=== PATIENT | male | born 1990 | race Caucasian/White ===

== ENCOUNTER 2019-08-01 15:02 | Inpatient (IN) | payer OTHER ==
[2019-08-01 17:02] VITALS: BMI 26.2
--- NOTE | 2019-08-01 17:50 | HP ---
CIWA Score Nausea/Vomitin-Mild Nausea/No Vomiting Muscle Tremors: None Anxiety: 1-Mildly Anxious Agitation: 1-Slight > Activity Paroxysmal Sweats: No Perspiration Orientation: 0-Oriented Tacttile Disturbances: 0-None Auditory Disturbances: 0-None Visual Disturbances: 0-None Headache: 0-None Present CIWA-Ar Total Score: 3 - Admission Criteria OASAS Guidelines: Admission for Medically Managed Detox: Requires at least one of the followin. CIWA greater than 12 2. Seizures within the past 24 hours 3. Delirium tremens within the past 24 hours 4. Hallucinations within the past 24 hours 5. Acute intervention needed for co occurring medical disorder 6. Acute intervention needed for co occurring psychiatric disorder 7. Severe withdrawal that cannot be handled at a lower level of care (continued vomiting, continued diarrhea, abnormal vital signs) requiring intravenous medication and/or fluids 8. Admission ROS S - HPI Allergies/Adverse Reactions: Allergies Allergy/AdvReac Type Severity Reaction Status Date / Time No Known Allergies Allergy Verified 08/01/19 16:55 History of Present Illness: pt here requesting rehab from cannabis use , reports " all day every day since age 15 ' , poor appetite w/ not using cocaine : 1-3.5 gr/day 150 $ /day 4-5 d/week , denies IV use , first age of use 18 . alcohol : 6-pk 12 beers /day , latest use yesterday , current c/o nausea and poor appetite pmhx : asthma , latest asthma exacerbation @ age 16 , anxiety , depression pshx : denies tobacco ; 1/2 ppd shx : homeless , unemployed , denies legal issues Exam Limitations: No Limitations - Ebola screening Have you traveled outside of the country in the last 21 days: No Have you had contact with anyone from an Ebola affected area: No - Review of Systems Constitutional: Loss of Appetite EENT: reports: Other (glasses) Respiratory: reports: See HPI Cardiac: reports: No Symptoms Reported GI: reports: No Symptoms Reported : reports: No Symptoms Reported Musculoskeletal: reports: Back Pain (chronic) Integumentary: reports: No Symptoms Reported Neuro: reports: No Symptoms reported Endocrine: reports: No Symptoms Reported Psychiatric: reports: Orientated x3, Anxious Patient History - Smoking Cessation Smoking history: Current every day smoker Have you smoked in the past 12 months: Yes Hx Chewing Tobacco Use: No Initiated information on smoking cessation: Yes 'Breaking Loose' booklet given: 08/01/19 - Substances abused Alcohol Substance route: Oral Frequency: Daily Amount used: 1 liter Age of first use: 15 Date of last use: 07/31/19 Cocaine Substance route: Inhalation Frequency: 3-6 times per week Amount used: 1gram-3grams Age of first use: 18 Date of last use: 07/30/19 Marijuana/Hashish Substance route: Smoking Frequency: Daily Amount used: 10 Blunts/day Age of first use: 15 Date of last use: 07/31/19 Admission Physical Exam S - Vital Signs Vital Signs: Vital Signs - 24 hr 08/01/19 16:38 Temperature 98.1 F Pulse Rate 94 H Respiratory 16 Rate Blood Pressure 138/80 - Physical General Appearance: Yes: Anxious HEENTM: Yes: EOMI, Hearing grossly Normal, Normocephalic, Normal Voice Respiratory: Yes: Chest Non-Tender, Lungs Clear, Normal Breath Sounds, No Respiratory Distress, No Accessory Muscle Use Neck: Yes: No masses,lesions,Nodules, Trachea in good position Cardiology: Yes: Regular Rhythm, Regular Rate, S1, S2 Abdominal: Yes: Non Tender, Soft Musculoskeletal: Yes: Gait Steady Extremities: Yes: Normal Range of Motion, Non-Tender Neurological: Yes: Fully Oriented, Alert, Motor Strength 5/5 Integumentary: Yes: Warm - Diagnostic (1) Cocaine abuse Current Visit: Yes Status: Chronic (2) Cannabis dependence Current Visit: Yes Status: Chronic (3) Nicotine dependence Current Visit: Yes Status: Chronic Qualifiers: Nicotine product type: cigarettes (4) Alcohol abuse Current Visit: Yes Status: Chronic Breathalyzer - Breathalyzer Breathalyzer: 0 Urine Drug Screen - Test Device Lot number: [id number] Expiration date: 04/10/21 - Control Is test valid?: Yes - Results Drug screen NEGATIVE: No Urine drug screen results: THC-Marijuana, SHELBY-Cocaine Inpatient Rehab Admission - Rehab Decision to Admit Inpatient rehab admission?: Yes - Initial Determination Are CD services needed?: Yes Free of communicable disease: Yes Not in need of hospitalization: Yes - Rehab Admission Criteria Previous failed treatment: Yes Poor recovery environment: Yes Comorbidities: No Lacks judgement: Yes Patient is meeting Inpatient Rehab admission criteria:: Yes
[2019-08-01] MEDS ORDERED: LOPERAMIDE HCL 2 MG CAPSULE PO PRN (18:00)
[2019-08-01] MEDS ORDERED: MENTHOL/PHENOL 1 EACH UD MM PRN (18:00)
[2019-08-01] MEDS ORDERED: MAGNESIUM CITRATE 300 ML BOTTLE PO PRN (18:00)
[2019-08-01] MEDS ORDERED: NICOTINE POLACRILEX 2 MG GUM BC PRN (18:00)
[2019-08-01] MEDS ORDERED: guaiFENesin 200 MG/10 ML 10 ML UNIT-DOSE CUPS PO PRN (18:00)
[2019-08-01] MEDS ORDERED: P-EPHED 60MG/TRIPROLIDI 2.5MG TABLET PO PRN (18:00)
[2019-08-01] MEDS ORDERED: ACETAMINOPHEN 325 MG TABLET (FP) PO PRN (18:00)
[2019-08-01] MEDS ORDERED: MAGNESIUM HYDROX 2400MG/30ML ORAL SUSPENSION 30 ML CUP PO PRN (18:00)
[2019-08-01] MEDS: THIAMINE HCL 100 MG TABLET (FP) PO SCH (21:28)
[2019-08-01] MEDS: MELATONIN 5 MG TABLETS PO PRN (21:29)
[2019-08-01] MEDS: hydrOXYzine PAMOATE 50 MG CAPSULE (FP) PO PRN (21:29)
[2019-08-01] MEDS ORDERED: TUBERCULIN PPD 5 TU/0.1ML VIAL ID ONE (21:41)
--- NOTE | 2019-08-02 09:40 | CONSULT ---
[facility] Psychiatric Consult - Data Date of interview: 08/02/19 Admission source: [facility] Identifying data: Patient is a 29 year old single male, without children, unemployed, homeless, and is not receiving financial assistance. This is patient's first admission to rehab at [facility]. Patient admitted to for alcohol, cocaine, and marijuana dependence. Substance Abuse History: Smoking Cessation. Smoking history: Current every day smoker. Have you smoked in the past 12 months: Yes. Hx Chewing Tobacco Use: No. Initiated information on smoking cessation: Yes. 'Breaking Loose' booklet given: 08/01/19. - Substances abused. Alcohol. Substance route: Oral. Frequency: Daily. Amount used: 1 liter. Age of first use: 15. Date of last use: 07/31/19. Cocaine. Substance route: Inhalation. Frequency: 3-6 times per week. Amount used: 1gram-3grams. Age of first use: 18. Date of last use: 07/30/19. Marijuana/Hashish. Substance route: Smoking. Frequency: Daily. Amount used: 10 Blunts/day. Age of first use: 15. Date of last use: 07/31/19 Medical History: asthma Psychiatric History: Patient's first psychiatric contact was in 2015 after his admission to [facility] long term program in 2014. Patient reports being diagnosed with Depression, PTSD, and anxiety and was prescribed Remeron (unknown dose), Trazodone 100mg + Seroquel 100mg + Gabapentin 300mg TID. After discharge from his 22 month rehab stay he discontinued his medications. Mr. Scott reports seeing additional psychiatrist when admitted to various detox/rehab facilites. He most recently received rehab treatment at [facility] 1-2 months ago and reports being prescribed trazodone 150mg + benadryl PRN. At present patient reports feeling anxious and is having experiencing difficulty sleeping. Physical/Sexual Abuse/Trauma History: Denies physical and sexual abuse but reports trauma in other ways he would not elaborate on. Mental Status Exam - Mental Status Exam Alert and Oriented to: Time, Place, Person Cognitive Function: Good Patient Appearance: Well Groomed Mood: Euthymic Affect: Mood Congruent Patient Behavior: Appropriate, Cooperative Speech Pattern: Appropriate Voice Loudness: Normal Thought Process: Goal Oriented Thought Disorder: Not Present Hallucinations: Denies Suicidal Ideation: Denies Homicidal Ideation: Denies Insight/Judgement: Poor Sleep: Poorly Appetite: Fair Muscle strength/Tone: Normal Gait/Station: Normal Psychiatric Findings - Problem List (Crystal 1, 2,3) (1) Substance-induced sleep disorder Current Visit: Yes Status: Acute (2) Alcohol abuse Current Visit: Yes Status: Chronic (3) Cannabis dependence Current Visit: Yes Status: Chronic (4) Cocaine abuse Current Visit: Yes Status: Chronic (5) Nicotine dependence Current Visit: Yes Status: Chronic Qualifiers: Nicotine product type: cigarettes (6) Substance induced mood disorder Current Visit: Yes Status: Acute (7) Anxiety disorder Current Visit: Yes Status: Chronic - Initial Treatment Plan Initial Treatment Plan: Psychoeducation provided. Rehab in progress. Will order Trazodone 100mg HS + Gabapentin 300mg TID. Benefits and side effecs discussed. Verbal consent given.
[2019-08-02] MEDS: PRENATAL VITAMINS W/ FOLIC ACID TABLET (FP) PO SCH (09:45)
--- NOTE | 2019-08-02 09:54 | PN ---
[facility] Progress Note Note: Pt is a 29 y/o male with a hx of alc,cocaine,marijuana admitted to rehab referred by self. Psych Hx of Depression and MHx of Asthma and GERD. Pt reports he has no primary care provider but goes to [facility] for medical care. Vital Signs - 24 hr 08/01/19 08/02/19 08/02/19 16:38 00:30 03:30 Temperature 98.1 F Pulse Rate 94 H Respiratory 16 18 18 Rate Blood Pressure 138/80 08/02/19 07:01 Temperature 97.6 F Pulse Rate 77 Respiratory 18 Rate Blood Pressure 100/68 Labs pending Alert o x 3 nad oob ambulating with steady gait. A/P New Rehab pt Maintain safety. psych consult done. Increase po fluids.
[2019-08-02 10:12] LABS: URINE APPEARANCE CLEAR; URINE BILIRUBIN NEGATIVE (NEGATIVE); URINE COLOR YELLOW; URINE GLUCOSE (UA) NEGATIVE (NEGATIVE); URINE KETONE NEGATIVE (NEGATIVE); URINE LEUK ESTERASE NEGATIVE (NEGATIVE); URINE NITRITE NEGATIVE (NEGATIVE); URINE PROTEIN NEGATIVE (NEGATIVE); URINE UROBILINOGEN 0.2 mg/dL (0.2-1.0)
[2019-08-02 12:30] LABS: HEMATOCRIT 45.9 % (35.4-49); HEMOGLOBIN 15.5 GM/dL (11.7-16.9); MCH 31.2 pg (25.7-33.7); MCHC 33.7 g/dl (32.0-35.9); MEAN CELL VOLUME 92.6 fl (80-96); MEAN PLT VOLUME 10.2 fl (7.5-11.1); PLATELET COUNT 200 K/MM3 (134-434); RBC 4.95 M/mm3 (4.00-5.60); RDW 13.8 % (11.9-15.9); WHITE BLOOD COUNT 6.5 K/mm3 (4.0-10.0)
[2019-08-02 12:44] LABS: ALBUMIN 3.9 g/dl (3.4-5.0); BILIRUBIN,TOTAL 0.5 mg/dL (0.2-1); BLOOD UREA NITROGEN 8.6 mg/dL (7-18); CALCIUM 9.7 mg/dL (8.5-10.1); CREATININE 1.2 mg/dL (0.55-1.3); POTASSIUM 4.6 mmol/L (3.5-5.1); TOT PROT 6.7 g/dl (6.4-8.2)
[2019-08-02] MEDS: GABAPENTIN 300 MG CAPSULE (FP) PO SCH ×2 (14:45→21:22)
[2019-08-02] MEDS: IBUPROFEN 400 MG TABLET (FP) PO PRN (17:33)
[2019-08-02] MEDS: THIAMINE HCL 100 MG TABLET (FP) PO SCH (21:22)
[2019-08-02] MEDS: MELATONIN 5 MG TABLETS PO PRN (21:22)
[2019-08-02] MEDS: traZODone HCL 100 MG TABLET (FP) PO SCH (21:22)
[2019-08-03] MEDS: GABAPENTIN 300 MG CAPSULE (FP) PO SCH ×3 (07:15→21:26)
[2019-08-03] MEDS: PRENATAL VITAMINS W/ FOLIC ACID TABLET (FP) PO SCH (09:47)
[2019-08-03] MEDS: THIAMINE HCL 100 MG TABLET (FP) PO SCH (21:26)
[2019-08-03] MEDS: traZODone HCL 100 MG TABLET (FP) PO SCH (21:26)
[2019-08-03] MEDS: MELATONIN 5 MG TABLETS PO PRN (21:26)
[2019-08-03] MEDS: MAG HYDROX/AL HYDROX/SIMETH 30 ML UNIT-DOSE CUP PO PRN (21:37)
[2019-08-04] MEDS: GABAPENTIN 300 MG CAPSULE (FP) PO SCH ×3 (06:51→21:29)
[2019-08-04] MEDS: PRENATAL VITAMINS W/ FOLIC ACID TABLET (FP) PO SCH (10:14)
[2019-08-04] MEDS: THIAMINE HCL 100 MG TABLET (FP) PO SCH (21:29)
[2019-08-04] MEDS: traZODone HCL 100 MG TABLET (FP) PO SCH (21:29)
[2019-08-04] MEDS: MELATONIN 5 MG TABLETS PO PRN (21:29)
[2019-08-05] MEDS: GABAPENTIN 300 MG CAPSULE (FP) PO SCH ×3 (06:28→21:37)
[2019-08-05] MEDS: PRENATAL VITAMINS W/ FOLIC ACID TABLET (FP) PO SCH (10:30)
[2019-08-05] MEDS: IBUPROFEN 400 MG TABLET (FP) PO PRN (10:30)
[2019-08-05] MEDS: hydrOXYzine PAMOATE 50 MG CAPSULE (FP) PO PRN ×3 (10:30→21:38)
[2019-08-05] MEDS: MAG HYDROX/AL HYDROX/SIMETH 30 ML UNIT-DOSE CUP PO PRN (19:14)
[2019-08-05] MEDS: MELATONIN 5 MG TABLETS PO PRN (21:37)
[2019-08-05] MEDS: traZODone HCL 100 MG TABLET (FP) PO SCH (21:37)
[2019-08-05] MEDS: THIAMINE HCL 100 MG TABLET (FP) PO SCH (21:37)
[2019-08-06] MEDS: GABAPENTIN 300 MG CAPSULE (FP) PO SCH (06:31)
[2019-08-06] MEDS: hydrOXYzine PAMOATE 50 MG CAPSULE (FP) PO PRN ×2 (06:32→10:20)
[2019-08-06 07:21] VITALS: BP 95/65; PULSE 65; TEMP 97.7
--- NOTE | 2019-08-06 08:51 | DS ---
[facility] Rehab Discharge Summary - [facility] Rehab Discharge Summary Admission Date: 08/01/19 Discharge Date: 08/06/19 - History Present History: Alcohol dependence, Cannabis dependence, Cocaine dependence Additional Comments: Pt is a 29 y/o male with a hx of alc,cocaine,marijuana admitted to rehab referred by self and discharging today to follow up with aftercare. Psych Hx of Depression and MHx of Asthma and GERD. Pt reports he has no primary care provider but goes to [facility] for medical care. Pt has been referred to a Residential Treatment program, [facility] in [place] where a bed is available for him today. Pertinent Past History: Asthma GERD Anxiety Disorder - Discharge Physical Exam Vital Signs: Vital Signs Temperature 97.7 F 08/06/19 07:19 Pulse Rate 65 08/06/19 07:19 Respiratory Rate 18 08/06/19 07:19 Blood Pressure 95/65 08/06/19 07:19 O2 Sat by Pulse Oximetry (%) Alert o x 3;denies s/h/i nad oob ambulating with steady gait cardiac:s1 s2.rrr lungs:cta,rebecca. abdomen:flat,+bs,nt extremities/skin:no edema,Active/full ROM/weight bearing;skin intact. Pertinent Admission Physical Exam Findings: Laboratory Tests 08/02/19 08/02/19 08/02/19 08:20 08:55 08:55 WBC 6.5 RBC 4.95 Hgb 15.5 Hct 45.9 MCV 92.6 MCH 31.2 MCHC 33.7 RDW 13.8 Plt Count 200 MPV 10.2 Sodium 139 Potassium 4.6 Chloride 102 Carbon Dioxide 32 Anion Gap 4 L BUN 8.6 Creatinine 1.2 Est GFR (CKD-EPI)AfAm 95.47 Est GFR (CKD-EPI)NonAf 82.38 Random Glucose 108 H Calcium 9.7 Total Bilirubin 0.5 AST 12 L ALT 18 Alkaline Phosphatase 66 Total Protein 6.7 Albumin 3.9 Urine Color Yellow Urine Appearance Clear Urine pH 7.0 Ur Specific Saxton 1.020 Urine Protein Negative Urine Glucose (UA) Negative Urine Ketones Negative Urine Blood Negative Urine Nitrite Negative Urine Bilirubin Negative Urine Urobilinogen 0.2 Ur Leukocyte Esterase Negative RPR Titer 08/02/19 08:55 WBC RBC Hgb Hct MCV MCH MCHC RDW Plt Count MPV Sodium Potassium Chloride Carbon Dioxide Anion Gap BUN Creatinine Est GFR (CKD-EPI)AfAm Est GFR (CKD-EPI)NonAf Random Glucose Calcium Total Bilirubin AST ALT Alkaline Phosphatase Total Protein Albumin Urine Color Urine Appearance Urine pH Ur Specific Saxton Urine Protein Urine Glucose (UA) Urine Ketones Urine Blood Urine Nitrite Urine Bilirubin Urine Urobilinogen Ur Leukocyte Esterase RPR Titer Nonreactive Unchanged from admission - Treatment Discharge Condition: Discharge condition good Hospital Course: Rehabilitated safely and responded well CD aftercare referral accepted. - Medication Discharge Medications: Ambulatory Orders hydrOXYzine PAMOATE [Vistaril -] 50 mg PO Q8H PRN #60 capsule 08/06/19 traZODone HCL [Desyrel -] 100 mg PO HS #30 tablet 08/06/19 - Medication-Assisted Treatment (MAT) Medication-Assisted Treatment (MAT): No - Discharge Instructions Diet, activity, other medical instructions: Diet:Regular Activity: oob ad lanie Other medical instructions:follow up with Cd aftercare recommendation as scheduled @ [facility] on [address] [place] [address]. follow up with primary care within 1-2 weeks after discharge and as needed. - Diagnosis (1) Alcohol abuse Current Visit: Yes Status: Chronic (2) Cannabis dependence Current Visit: Yes Status: Chronic (3) Cocaine abuse Current Visit: Yes Status: Chronic (4) Nicotine dependence Current Visit: Yes Status: Chronic Qualifiers: Nicotine product type: cigarettes Substance use status: uncomplicated Qualified Code(s): F17.210 - Nicotine dependence, cigarettes, uncomplicated - Follow-up Referral Minutes to complete discharge: 20 - AMA Did Patient Leave Against Medical Advice: No
--- NOTE | 2019-08-06 09:52 | PN ---
Psychiatric Progress Note Vital Signs: Vital Signs Period Temp Pulse Resp BP Sys/Dacosta Pulse Ox Last 24 Hr 97.7 F 65 18-18 95/65 Date of Session: 08/06/19 Chief Complaint:: " Can i get a different medication other then gabapentin for discharge." HPI: Patient admitted to for alcohol, cocaine, and marijuana dependence. Reason for consult: Seeking alternative medication to gabapentin. ROS: Patient is calm , cooperative, alert + oriented X3. Current Medications: Active Medications Generic Name Dose Route Start Last Admin Trade Name Freq PRN Reason Stop Dose Admin Acetaminophen 650 mg 08/01/19 18:00 08/03/19 12:00 Tylenol - PO 650 mg Q4H PRN Administration FEVER Al Hydroxide/Mg Hydroxide 30 ml 08/01/19 18:00 08/05/19 19:14 Mylanta Oral Suspension - PO 30 ml Q6H PRN Administration DYSPEPSIA Eucalyptus/Menthol/Phenol/Sorbitol 1 each 08/01/19 18:00 Cepastat Lozenge - MM Q4H PRN SORE THROAT Guaifenesin 10 ml 08/01/19 18:00 Robitussin - PO Q6H PRN COUGH Hydroxyzine Pamoate 50 mg 08/01/19 18:00 08/06/19 06:32 Vistaril - PO 50 mg Q4H PRN Administration AGITATION Ibuprofen 400 mg 08/01/19 18:00 08/05/19 10:30 Motrin - PO 400 mg Q6H PRN Administration Pain level 4-6 Loperamide HCl 4 mg 08/01/19 18:00 Imodium - PO Q6H PRN DIARRHEA Magnesium Citrate 300 ml 08/01/19 18:00 Citroma - PO Q48H PRN CONSTIPATION Magnesium Hydroxide 30 ml 08/01/19 18:00 08/05/19 20:11 Milk Of Magnesia - PO 30 ml DAILY PRN Administration CONSTIPATION Melatonin 5 mg 08/01/19 22:00 08/05/19 21:37 Melatonin PO 5 mg HS PRN Administration INSOMNIA Nicotine Polacrilex 2 mg 08/01/19 18:00 Nicorette Gum - BC Q2H PRN NICOTINE REPLACEMENT RX Multivit/Folic Acid/Iron 1 tab 08/02/19 10:00 08/05/19 10:30 Vitamins (Sjr) - PO 1 tab DAILY WIN Administration Pseudoephedrine/Triprolidine 1 combo 08/01/19 18:00 Actifed - PO TID PRN NASAL CONGESTION Thiamine HCl 100 mg 08/01/19 22:00 08/05/19 21:37 Vitamin B1 - PO 100 mg HS WIN Administration Trazodone HCl 100 mg 08/02/19 22:00 08/05/19 21:37 Desyrel - PO 100 mg HS WIN Administration Medication(s) Change(s): Yes. Will discontinue gabapentin 300mg TID. Current Side Effect: No Lab tests ordered: No Lab tests reviewed: Yes Provider note:: Patient scheduled for discharge this morning and was made aware that he was accepted to [facility]. Mr. Scott was also informed that the [facility] does not accept patient's with a prescription of gabapentin which he did not know. Patient requesting alternative medication for anxiety. Medications reviewed. Patient has accepted vistaril 50mg while in rehab. Will give patient a prescription of vistaril 50mg q8h for anxiety ( 60 tablets) and trazodone 100mg HS ( 30 tablets). Patient satified and receptive to feedback. Total face to face time:: 25 Mental Status Exam - Mental Status Exam Alert and Oriented to: Time, Place, Person Cognitive Function: Good Patient Appearance: Well Groomed Mood: Euthymic Affect: Appropriate Patient Behavior: Appropriate, Cooperative Speech Pattern: Clear, Appropriate Voice Loudness: Normal Thought Process: Goal Oriented Thought Disorder: Not Present Hallucinations: Denies Suicidal Ideation: Denies Homicidal Ideation: Denies Insight/Judgement: Fair Sleep: Well Appetite: Good Muscle strength/Tone: Normal Gait/Station: Normal Psychiatric Treatment Plan - Problem List (1) Substance-induced sleep disorder Comment: .. (2) Alcohol abuse Comment: .. (3) Cannabis dependence Comment: .. (4) Cocaine abuse Comment: .. (5) Nicotine dependence Qualifiers: Nicotine product type: cigarettes Substance use status: uncomplicated Qualified Code(s): F17.210 - Nicotine dependence, cigarettes, uncomplicated Comment: .. (6) Substance induced mood disorder Comment: .. (7) Anxiety disorder Comment: ..
--- NOTE | 2019-08-06 10:04 | PN ---
[facility] Progress Note Note: Psychiatric nurse practitioner note: A 30 day prescription of Trazodone 100mg HS ( 30 tablets) and Vistaril 50mg Q8H for anxiety (60 tablets) was electronically sent to [facility] at [address] [place] [address].
[2019-08-06] MEDS: PRENATAL VITAMINS W/ FOLIC ACID TABLET (FP) PO SCH (10:20)
== END 2019-08-06 10:40 | disposition home or self-care (01) | DRG 772 ==
LOC: YASAS 15:02 → Y5N 18:49
PROVIDERS: ADMIT Neuromusculoskeletal Medicine & OMM; ATTEND Neuromusculoskeletal Medicine & OMM
PROC: HZ42ZZZ Group Counseling for Substance Abuse Treatment, Cognitive-Behavioral (ICD-10-PCS; principal; 2019-08-01)
DX: F10.20 Alcohol dependence, uncomplicated (principal); F14.20 Cocaine dependence, uncomplicated; F12.20 Cannabis dependence, uncomplicated; F17.210 Nicotine dependence, cigarettes, uncomplicated; F19.282 Other psychoactive substance dependence with psychoactive substance-induced sleep disorder; F19.24 Other psychoactive substance dependence with psychoactive substance-induced mood disorder; F41.9 Anxiety disorder, unspecified; J45.909 Unspecified asthma, uncomplicated
CPT/HCPCS: 36415; 80053; 81003; 85027; 86593